=== PATIENT | male | born 1980 | race Two or more races ===

== ENCOUNTER 2017-09-27 16:27 | Emergency (ER) | payer SELFPAY ==
[~2017-09-27] VITALS: Ht 167.6 cm; Wt 83.9 kg
[2017-09-27 16:35] VITALS: Ht 167.6 cm; Wt 83.9 kg
[2017-09-27 18:49] VITALS: BP 122/89
== END 2017-09-27 18:49 | disposition home or self-care (01) ==
LOC: ED 16:27
DX: S61.212A Laceration without foreign body of right middle finger without damage to nail, initial encounter (principal); S61.214A Laceration without foreign body of right ring finger without damage to nail, initial encounter; S61.216A Laceration without foreign body of right little finger without damage to nail, initial encounter; W26.0XXA Contact with knife, initial encounter; Y93.89 Activity, other specified; Y92.89 Other specified places as the place of occurrence of the external cause; Y99.8 Other external cause status
CPT/HCPCS: J2001; J3490; Q0092